=== PATIENT | female | born 1960 | race Caucasian/White ===

== ENCOUNTER 2018-08-06 20:40 | Emergency (ER) | payer OTHER ==
[~2018-08-06] VITALS: Ht 167.6 cm; Wt 88.9 kg
[~2018-08-06 20:40] MED LIST: FLUC100T8 PO; LINE600T PO; METR500T PO
--- NOTE | 2018-08-06 20:50 | NUR ---
PT BBFAMILY FROM HOME C/C BILATERAL LQ ABD PAIN X6 DAYS W/ +N,-V/D. AFEBRILE. -DYSURIA. -HEMATURIA. C/O L ANKLE PAIN S/P MECHANICAL FALL. -HEAD TRAUMA. PT AOX4. PT ON MONITOR IN BED 2 WITH FAMILY AT BEDSIDE. NAD NOTED. RESP EVEN AND UNLABORED. WILL CONTINUE TO MONITOR.
--- NOTE | 2018-08-06 21:35 | NUR ---
URINE COLLECTED AND SENT TO LAB
[2018-08-06] MEDS ORDERED: IV NS 0.9% 1,000 ML BAG IV ONE (22:00)
[2018-08-06] MEDS ORDERED: ONDANSETRON HCL/PF 4 MG/2 ML VIAL IVP ONE (22:00)
[2018-08-06] MEDS ORDERED: MORPHINE SULFATE INJ 2 MG/ML DISP.SYRIN IV ONE (22:00)
--- NOTE | 2018-08-06 22:01 | NUR ---
RADIOLOGY AT BEDSIDE FOR XRAY
[2018-08-06 22:10] LABS: APPEARANCE,URINE Clear (CLEAR); BILIRUBIN,URINE Negative (NEGATIVE); BLOOD, URINE Negative Ery/uL (NEGATIVE); COLOR,URINE Yellow (YELLOW); KETONES,URINE Trace (NEGATIVE); LEUKOCYTE ESTERASE ,URINE Small (NEGATIVE); NITRITE, URINE Negative (NEGATIVE); PH,URINE 6.5 (5.0-8.0); PROTEIN,URINE Negative (NEGATIVE); UGLUCOSE Negative (NEGATIVE); UROBILINOGEN,URINE 0.2 EU/dL (0.2)
[2018-08-06 22:14] LABS: BASOPHILS # (AUTO) 0.1 /CMM (0.0-0.2); BASOPHILS % (AUTO) 0.7 % (0.0-2.0); EOSINOPHILS % (AUTO) 2.5 % (0.0-6.0); HEMATOCRIT 46 % (33-45); HEMOGLOBIN 15.7 g/dL (11.5-14.8); LYMPHOCYTES # (AUTO) 2.8 /CMM (0.8-4.8); LYMPHOCYTES % (AUTO) 35.1 % (20.0-44.0); MEAN CORPUSCULAR HGB CONC 34 g/dl (31.0-36.0); MEAN CORPUSCULAR VOLUME 93 fL (82-100); MONOCYTES # (AUTO) 0.7 /CMM (0.1-1.30); MONOCYTES % (AUTO) 8.8 % (2.0-12.0); NEUTROPHILS # (AUTO) 4.2 /CMM (1.8-8.9); NEUTROPHILS % (AUTO) 52.9 % (43.0-81.0); PLATELET COUNT (AUTO) 281 /CMM (150-450); RED BLOOD CELL COUNT(AUTO) 4.93 MIL/uL (4.0-5.2); WHITE BLOOD COUNT (AUTO) 7.9 K/uL (4.3-11.0)
[2018-08-06 22:22] LABS: RBC,URINE NONE SEEN /HPF (0-2)
[2018-08-06 22:23] LABS: BACTERIA,URINE 1+ /HPF (None Seen); HYALINE CASTS, URINE Few /LPF (None Seen); SQUAMOUS EPITHELIAL CELL,UR Moderate /HPF (None Seen)
[2018-08-06 22:23] LABS: CALCIUM, SERUM 9.7 mg/dL (8.5-10.1); CREATININE 0.5 mg/dL (0.6-1.3); POTASSIUM 4.5 mmol/L (3.5-5.1)
[2018-08-06 22:37] LABS: ALBUMIN 3.9 g/dL (3.4-5.0); BILIRUBIN,TOTAL 0.2 mg/dL (0.2-1.0); TOTAL PROTEIN, SERUM 7.5 g/dL (6.4-8.2)
[2018-08-06] MEDS ORDERED: CT SWABBABLE VALVE TRANS SET 1 EA INFUS.SET MC ONE (23:22)
[2018-08-06] MEDS ORDERED: IV NS 0.9% 250 ML IV ONE (23:22)
[2018-08-06] MEDS ORDERED: IOHEXOL-300 100 ML VIAL IV ONE (23:22)
--- NOTE | 2018-08-07 01:57 | NUR ---
PT REC'D A CANE AND WAS ABLE TO AMBULATE WITH THE CANE. PT ALSO HAS A CAM WALKER BOOT. PT AMBULATED OUT WITH A SLOW STEADY GAIT. VSS. Patient discharged to home in stable condition. Written and verbal after care instructions given. Patient verbalizes understanding of instruction AND RX.
[2018-08-07 01:59] VITALS: BP 120/77
--- NOTE | 2018-08-07 02:00 | NUR ---
IV removed. Catheter intact and site benign. Pressure and 4x4 applied to site. No bleeding noted.
== END 2018-08-07 02:00 | disposition home or self-care (01) ==
LOC: ER 20:40
DX: S92.352A Displaced fracture of fifth metatarsal bone, left foot, initial encounter for closed fracture (principal); N39.0 Urinary tract infection, site not specified; Z88.0 Allergy status to penicillin; W01.0XXA Fall on same level from slipping, tripping and stumbling without subsequent striking against object, initial encounter; Y93.89 Activity, other specified; Y92.89 Other specified places as the place of occurrence of the external cause; Y99.8 Other external cause status
CPT/HCPCS: 36415; 73630-TC; 80048-TC; 80076-TC; 81000-TC; 83690-TC; 85025-TC; 87086-TC; J7030; J7050; Q9967

== ENCOUNTER 2021-03-01 11:15 | Emergency (ER) | payer OTHER ==
[~2021-03-01] VITALS: Ht 167.6 cm; Wt 83.9 kg
[~2021-03-01 11:15] MED LIST changes: -LINE600T PO; +LINE600T12 PO
--- NOTE | 2021-03-01 11:28 | NUR ---
TO ER BED 6, L SIDED CHEST PAIN R/T L UPPER BACK STARTED 2DAYS AGO, PAINFULL TAKING DEEP BREATHS, AAOX4, BREATHING EVEN AND NON LABORED
--- NOTE | 2021-03-01 12:02 | NUR ---
SALINE LOCK ESTABLISHED, RAC 20G, BLOOD DRAWN
[2021-03-01 12:09] LABS: BASOPHILS # (AUTO) 0.1 K/uL (0.0-0.2); BASOPHILS % (AUTO) 0.9 % (0.0-2.0); EOSINOPHILS % (AUTO) 3.1 % (0.0-6.0); HEMATOCRIT 45 % (33-45); HEMOGLOBIN 15.3 g/dL (11.5-14.8); LYMPHOCYTES # (AUTO) 2.8 K/uL (0.8-4.8); LYMPHOCYTES % (AUTO) 38.7 % (20.0-44.0); MEAN CORPUSCULAR HGB CONC 34 g/dl (31.0-36.0); MEAN CORPUSCULAR VOLUME 91 fL (82-100); MONOCYTES # (AUTO) 0.6 K/uL (0.1-1.30); MONOCYTES % (AUTO) 8.1 % (2.0-12.0); NEUTROPHILS # (AUTO) 3.5 K/uL (1.8-8.9); NEUTROPHILS % (AUTO) 49.2 % (43.0-81.0); PLATELET COUNT (AUTO) 280 K/uL (150-450); RED BLOOD CELL COUNT(AUTO) 4.98 MIL/uL (4.0-5.2); WHITE BLOOD COUNT (AUTO) 7.2 K/uL (4.3-11.0)
[2021-03-01 12:21] LABS: CALCIUM, SERUM 8.9 mg/dL (8.5-10.1); CARBON DIOXIDE 27 mmol/L (21-32); CHLORIDE 105 mmol/L (98-107); CREATININE 0.6 mg/dL (0.6-1.3); GLUCOSE 110 mg/dL (74-106); POTASSIUM 4.1 mmol/L (3.5-5.1); SODIUM SERUM 140 mmol/L (136-145); UREA NITROGEN, BLOOD 13 mg/dL (7-18)
--- NOTE | 2021-03-01 13:19 | NUR ---
THE PATIENT RESTING IN BED. WILL CONTINUE TO MONITOR THE PATIENT.
[2021-03-01] MEDS ORDERED: KETOROLAC TROMETHAMINE INJ 30 MG/ML VIAL ONE (14:26)
[2021-03-01] MEDS ORDERED: KETOROLAC TROMETHAMINE INJ 30 MG/ML VIAL IV ONE (14:30)
[2021-03-01 14:48] VITALS: BP 122/69
--- NOTE | 2021-03-01 14:48 | NUR ---
IV removed. Catheter intact and site benign. Pressure and 4x4 applied to site. No bleeding noted.Patient discharged to home in stable condition. Written and verbal after care instructions given. Patient verbalizes understanding of instruction.
== END 2021-03-01 14:49 | disposition home or self-care (01) ==
LOC: ER 11:22
DX: I51.7 Cardiomegaly (principal); R07.89 Other chest pain; F17.210 Nicotine dependence, cigarettes, uncomplicated; M06.9 Rheumatoid arthritis, unspecified; Z88.0 Allergy status to penicillin; Z79.899 Other long term (current) drug therapy
CPT/HCPCS: 36415; 71045; 80048; 83880; 84484; 85025; 85378; 93005 ×2; 96374; 99285; 99406; J1885

== ENCOUNTER 2022-01-01 01:42 | Emergency (ER) | payer OTHER ==
[~2022-01-01] VITALS: Ht 167.6 cm; Wt 90.7 kg
--- NOTE | 2022-01-01 02:00 | NUR ---
BIBDAUGHTER C/O ALLERGIC REACTION TO SUNBLOCK ON BILAT ANKLES X3DAYS. PT IS ALERT AND ORIENTED. BREATHING IS EVEN AND NONLABORED. AWAITING MD ARRIAGA
--- NOTE | 2022-01-01 02:20 | NUR ---
LAB AT BEDSIDE
[2022-01-01 02:29] LABS: BASOPHILS # (AUTO) 0.1 K/uL (0.0-0.2); BASOPHILS % (AUTO) 0.9 % (0.0-2.0); EOSINOPHILS % (AUTO) 3.7 % (0.0-6.0); HEMATOCRIT 43 % (33-45); HEMOGLOBIN 14.7 g/dL (11.5-14.8); LYMPHOCYTES % (AUTO) 33.4 % (20.0-44.0); MEAN CORPUSCULAR HGB CONC 34 g/dl (31.0-36.0); MEAN CORPUSCULAR VOLUME 89 fL (82-100); MONOCYTES # (AUTO) 0.7 K/uL (0.1-1.30); MONOCYTES % (AUTO) 7.4 % (2.0-12.0); NEUTROPHILS # (AUTO) 4.9 K/uL (1.8-8.9); NEUTROPHILS % (AUTO) 54.6 % (43.0-81.0); PLATELET COUNT (AUTO) 263 K/uL (150-450); RED BLOOD CELL COUNT(AUTO) 4.79 MIL/uL (4.0-5.2); WHITE BLOOD COUNT (AUTO) 8.9 K/uL (4.3-11.0)
[2022-01-01 02:36] LABS: CALCIUM, SERUM 8.9 mg/dL (8.5-10.1); CREATININE 0.7 mg/dL (0.6-1.3); POTASSIUM 3.7 mmol/L (3.5-5.1)
[2022-01-01] MEDS ORDERED: SULFAMETH/TRIMETH 800/160 MG 1 UDTAB TABLET PO ONE (03:30)
[2022-01-01] MEDS ORDERED: TDAP [DIPH/PERTUSSIS/TET] 0.5 ML VIAL IM ONE (03:30)
[2022-01-01] MEDS ORDERED: predniSONE 50 MG TABLET PO ONE (03:30)
[2022-01-01] MEDS ORDERED: PRED20TA GT (03:32)
[2022-01-01] MEDS ORDERED: SULF1TAB48 PO ×2 (03:32→12:07)
[2022-01-01] MEDS ORDERED: SULFAMETH/TRIMETH 800/160 MG 1 UDTAB TABLET ONE (03:38)
[2022-01-01] MEDS ORDERED: predniSONE 20 MG TABLET ONE (03:38)
--- NOTE | 2022-01-01 03:43 | NUR ---
DUE MEDS GIVEN
--- NOTE | 2022-01-01 03:44 | NUR ---
Patient discharged to home in stable condition. Written and verbal after care instructions given. Patient verbalizes understanding of instruction.
[2022-01-01 03:45] VITALS: BP 149/83
== END 2022-01-01 03:46 | disposition home or self-care (01) ==
LOC: ER 01:50
DX: R21 Rash and other nonspecific skin eruption (principal); M06.9 Rheumatoid arthritis, unspecified; F17.200 Nicotine dependence, unspecified, uncomplicated; Z88.0 Allergy status to penicillin; Z79.899 Other long term (current) drug therapy
CPT/HCPCS: 99283; 85025; 80048; 85652; 36415; J7512